=== PATIENT | male | born 1995 | race Caucasian/White ===

== ENCOUNTER 2017-12-14 20:57 | Emergency (ER) | payer OTHER ==
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
--- NOTE | 2017-12-14 22:03 | XR ---
EXAMINATION TYPE: XR shoulder limited LT DATE OF EXAM: 12/14/2017 COMPARISON: 07/19/2016 HISTORY: Shoulder pain TECHNIQUE: 3 views FINDINGS: I see no fracture nor dislocation. Joint spaces are normal. There are no pathologic calcifi cations. Left ribs appear intact. IMPRESSION: Normal left shoulder. No change.
[2017-12-14] MEDS ORDERED: DIPH,PERTUS(ACELL)TETVAC-LF 0.5 ML VIAL IM ONE (22:09)
[2017-12-14] MEDS ORDERED: AMOXIC-POT CLAV 875MG STARTER 2 EACH TABLET PO STA (22:09)
[2017-12-14 22:32] VITALS: BP 129/74; PULSE 94; RESP 18; TEMP 97.9
== END 2017-12-14 22:40 | disposition home or self-care (01) ==
LOC: EC 20:57
DX: S61.412A Laceration without foreign body of left hand, initial encounter (principal); S00.01XA Abrasion of scalp, initial encounter; M25.512 Pain in left shoulder; R07.81 Pleurodynia; Z23 Encounter for immunization; Y00.XXXA Assault by blunt object, initial encounter
CPT/HCPCS: 90471; 90715; 99284

== ENCOUNTER 2018-01-11 22:59 | Emergency (ER) | payer OTHER ==
[2018-01-11 23:06] VITALS: BP 152/99; PULSE 77; RESP 18; TEMP 97.2
[2018-01-11] MEDS ORDERED: KETOROLAC 30 MG/ML 1 ML VIAL IM STA (23:35)
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
== END 2018-01-12 00:10 | disposition home or self-care (01) ==
LOC: EC 22:59
DX: H66.92 Otitis media, unspecified, left ear (principal); F90.9 Attention-deficit hyperactivity disorder, unspecified type; F17.200 Nicotine dependence, unspecified, uncomplicated; Z98.890 Other specified postprocedural states; Z79.899 Other long term (current) drug therapy; Z88.8 Allergy status to other drugs, medicaments and biological substances
CPT/HCPCS: 99282; 96372; J1885

== ENCOUNTER 2018-01-12 17:25 | Emergency (ER) | payer OTHER ==
[2018-01-12 17:30] VITALS: BP 123/62; PULSE 114; RESP 18; TEMP 97
--- NOTE | 2018-01-12 18:31 | ED ---
ENT HPI - General Chief complaint: ENT Stated complaint: Ear pain Time Seen by Provider: 01/12/18 18:17 Source: patient Mode of arrival: ambulatory Limitations: no limitations - History of Present Illness Initial comments: 22-year-old male patient presents to the emergency department today with complaints of bleeding from the left ear. Patient states he was seen and treated here last evening for an ear infection. States that he slept throughout the day today. States when he woke up he noticed some dried blood from the left ear. Patient states his pain has improved. He denies any fevers or chills with this. He denies any headache or dizziness. Denies any neck pain or stiffness. Patient has not yet started his antibiotics for the infection. Patient denies any recent rash, shortness breath, chest pain, abdominal pain, nausea, vomiting, diarrhea, constipation, back pain, numbness, tingling, dizziness, weakness, hematuria, dysuria, urinary urgency, urinary frequency, headache, visual changes, or any other complaints. - Related Data Home Medications Medication Instructions Recorded Confirmed buPROPion XL [Wellbutrin Xl] 300 mg PO DAILY 01/11/18 01/11/18 Previous Rx's Medication Instructions Recorded Acetaminophen-Codeine 300-30mg 1 tab PO Q8H PRN #10 tablet 01/11/18 [Tylenol #3] Amoxic-Pot Clav 500-125 mg 1 tab PO TID #30 tab 01/11/18 [Augmentin 500-125 mg] Amoxic-Pot Clav 875-125Mg 1 tab PO Q12HR #20 tablet 01/12/18 [Augmentin 875-125] Ofloxacin 0.3% Otic Soln [Floxin 5 drops LEFT EAR BID #15 ml 01/12/18 0.3% Otic Soln] Allergies Allergy/AdvReac Type Severity Reaction Status Date / Time diphenhydramine HCl AdvReac Aggression Verified 01/12/18 17:30 [From Benadryl] mirtazapine [From Remeron] AdvReac Aggression Verified 01/12/18 17:30 Review of Systems ROS Statement: Those systems with pertinent positive or pertinent negative responses have been documented in the HPI. ROS Other: All systems not noted in ROS Statement are negative. Past Medical History Past Medical History: Seizure Disorder History of Any Multi-Drug Resistant Organisms: None Reported Past Surgical History: Ear Surgery, Tonsillectomy Past Psychological History: ADD/ADHD, Bipolar Smoking Status: Current every day smoker Past Alcohol Use History: None Reported Past Drug Use History: None Reported General Exam Limitations: no limitations General appearance: alert, in no apparent distress, other (This is a well- developed, well-nourished adult male patient in no acute distress. Vital signs upon presentation are temperature 97.0F, pulse 114, respirations 18, blood pressure 123/62, pulse ox 97% on room air.) Eye exam: Present: normal appearance, PERRL, EOMI. Absent: scleral icterus, conjunctival injection, periorbital swelling ENT exam: Present: normal oropharynx, mucous membranes moist, other (No mastoid tenderness.). Absent: normal exam, TM's normal bilaterally (Right tympanic membrane is normal. Left tympanic membrane reveals a central perforation. There is some dried blood in the canal. There is no canal erythema or swelling. ) Neck exam: Present: normal inspection, full ROM. Absent: tenderness, meningismus, lymphadenopathy Respiratory exam: Present: normal lung sounds bilaterally. Absent: respiratory distress, wheezes, rales, rhonchi, stridor Cardiovascular Exam: Present: regular rate, normal rhythm, normal heart sounds. Absent: systolic murmur, diastolic murmur, rubs, gallop, clicks Neurological exam: Present: alert, oriented X3, CN II-XII intact Psychiatric exam: Present: normal affect, normal mood Skin exam: Present: warm, dry, intact, normal color. Absent: rash Course Vital Signs 01/12/18 17:28 Temperature 97 F L Pulse Rate 114 H Respiratory 18 Rate Blood Pressure 123/62 O2 Sat by Pulse 97 Oximetry Medical Decision Making - Medical Decision Making 22-year-old male patient presented to the emergency department today for evaluation of bleeding from the left ear. Physical examination did reveal a perforated tympanic membrane on the left side. Patient stated no mastoid tenderness. No canal erythema or swelling. We will start patient on ofloxacin eardrops and increase the dosage of his Augmentin to 875/125. Patient is educated and instructed to follow-up with your nose and throat specialty as soon as possible. He is instructed to take ibuprofen and Tylenol for pain control. He is instructed to return here immediately for any new, worsening, or concerning symptoms. They verbalize understanding and agree with this plan. Disposition Clinical Impression: Acute otitis media of left ear with perforated tympanic membrane Disposition: HOME SELF-CARE Condition: Good Instructions: Ruptured Eardrum (ED), Otitis Media (ED) Additional Instructions: Use drops as directed. Take antibiotics until complete. Follow-up with ears nose and throat specialist as soon as possible. Return here immediately for any new, worsening, or concerning symptoms. Prescriptions: Amoxic-Pot Clav 875-125Mg [Augmentin 875-125] 1 tab PO Q12HR #20 tablet Ofloxacin 0.3% Otic Soln [Floxin 0.3% Otic Soln] 5 drops LEFT EAR BID #15 ml Referrals: Deven Donaldson MD [Primary Care Provider] - 1-2 days Kristian Lara DO [Doctor of Osteopathic Medicine] - 1-2 days Time of Disposition: 18:31
== END 2018-01-12 18:42 | disposition home or self-care (01) ==
LOC: EC 17:25
DX: H66.92 Otitis media, unspecified, left ear (principal); H72.92 Unspecified perforation of tympanic membrane, left ear; F90.9 Attention-deficit hyperactivity disorder, unspecified type; F17.200 Nicotine dependence, unspecified, uncomplicated; Z79.899 Other long term (current) drug therapy; Z88.8 Allergy status to other drugs, medicaments and biological substances; Z98.890 Other specified postprocedural states
CPT/HCPCS: 99282

== ENCOUNTER 2018-01-28 20:29 | Emergency (ER) | payer OTHER ==
[2018-01-28 20:47] VITALS: BP 135/71; PULSE 120; RESP 20; TEMP 99.2
[2018-01-28] MEDS ORDERED: HYDROcodone/APAP 5-325MG 1 EACH TAB PO STA (21:09)
[2018-01-28] MEDS ORDERED: PROPARACAINE 0.5% OPHTH DROPS 15 ML BTL LEFT EYE STA (21:44)
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
--- NOTE | 2018-01-28 21:50 | CT ---
EXAMINATION TYPE: CT facial bones wo con DATE OF EXAM: 01/28/2018 COMPARISON: NONE HISTORY: Left eye injury. CT DLP: 777.1 mGycm Automated exposure control for dose reduction was used. TECHNIQUE: Multiple axial sections were obtained from the bottom of the mandible to the vertex of the brain with no contrast. FINDINGS: There is extensive mucosal thickening in the maxillary sinuses and more on the left side. There is si milar mucosal thickening in the ethmoid and frontal sinuses to a lesser extent. There is minimal muco rosalba thickening in the left side sphenoid sinus. I see no evidence of a blowout fracture. Orbital rainer ins are intact. Maxilla is intact. The mandibular ring is intact. Nasal bone appears intact. Zygomati c arches appear normal. There is preseptal significant soft tissue swelling around the left orbit. Th is is seen inferior to the orbit. This probably small subcutaneous hematoma in the left infraorbital region. The globes are symmetric. CONCLUSION: No fracture. Pansinusitis. Left infraorbital soft tissue swelling. No evidence of orbital mass.
== END 2018-01-28 22:30 | disposition home or self-care (01) ==
LOC: EC 20:29
DX: S05.42XA Penetrating wound of orbit with or without foreign body, left eye, initial encounter (principal); F90.9 Attention-deficit hyperactivity disorder, unspecified type; F31.9 Bipolar disorder, unspecified; F17.200 Nicotine dependence, unspecified, uncomplicated; Z79.899 Other long term (current) drug therapy; Z88.8 Allergy status to other drugs, medicaments and biological substances; W22.8XXA Striking against or struck by other objects, initial encounter; Y99.0 Civilian activity done for income or pay
CPT/HCPCS: 12011; 70486; 99284

== ENCOUNTER 2018-12-23 19:37 | Emergency (ER) | payer OTHER ==
[2018-12-23] MEDS ORDERED: IBUPROFEN 600 MG TAB PO STA (20:06)
--- NOTE | 2018-12-23 20:09 | ED ---
Chest Pain HPI - General Chief Complaint: Chest Pain Stated Complaint: Chest pain Time Seen by Provider: 12/23/18 19:59 Source: patient Mode of arrival: ambulatory Limitations: no limitations - History of Present Illness Initial Comments: 23-year-old male presenting with left-sided sharp stabbing intermittent chest pain that began without inciting event, is worsened with coughing, not alleviated by anything. Patient denies any anginal equivalents with the pain started. He denies any personal or family history of early cardiac disease, DVT /PE, recent surgery, active cancer. He denies any history of hypertension or high cholesterol but is a smoker. He admits to upper respiratory infection for the last 1 week and states he has been coughing frequently. - Related Data Home Medications Medication Instructions Recorded Confirmed buPROPion XL [Wellbutrin Xl] 300 mg PO DAILY 01/11/18 01/11/18 Previous Rx's Medication Instructions Recorded Acetaminophen-Codeine 300-30mg 1 tab PO Q8H PRN #10 tablet 01/11/18 [Tylenol #3] Amoxic-Pot Clav 500-125 mg 1 tab PO TID #30 tab 01/11/18 [Augmentin 500-125 mg] Amoxic-Pot Clav 875-125Mg 1 tab PO Q12HR #20 tablet 01/12/18 [Augmentin 875-125] Ofloxacin 0.3% Otic Soln [Floxin 5 drops LEFT EAR BID #15 ml 01/12/18 0.3% Otic Soln] Benzonatate [Tessalon Perles] 100 mg PO TID PRN #20 capsule 12/23/18 Ibuprofen [Motrin] 600 mg PO Q6HR PRN #30 tab 12/23/18 predniSONE [Deltasone] 40 mg PO DAILY #10 tablet 12/23/18 Allergies Allergy/AdvReac Type Severity Reaction Status Date / Time diphenhydramine HCl AdvReac Aggression Verified 01/28/18 20:47 [From Benadryl] mirtazapine [From Remeron] AdvReac Aggression Verified 01/28/18 20:47 Review of Systems ROS Statement: Those systems with pertinent positive or pertinent negative responses have been documented in the HPI. Review of Systems Constitutional: Denies fever, chills Eyes: Denies change in vision, Denies pain Ears, nose, mouth, throat: Denies headaches, Denies sore throat Cardiovascular: Positive chest pain. Denies palpitations Respiratory: Denies shortness of breath, Positive cough Gastrointestinal: Denies abdominal pain. Denies nausea, vomiting, diarrhea. Genitourinary: Denies hematuria, Denies infections Musculoskeletal: Denies pain, Denies swelling Integumentary: Denies rash Neurological: Denies headache, focal weakness, focal numbness Psychiatric: Denies anxiety, Denies depression Hematologic/Lymphatic: Denies easy bleeding or bruising ROS Other: All systems not noted in ROS Statement are negative. Past Medical History Past Medical History: Seizure Disorder History of Any Multi-Drug Resistant Organisms: None Reported Past Surgical History: Ear Surgery, Tonsillectomy Past Psychological History: ADD/ADHD, Bipolar Smoking Status: Current every day smoker Past Alcohol Use History: None Reported Past Drug Use History: None Reported General Exam - General Exam Comments Initial Comments: General: Awake, alert, No acute Distress HENT: Normocephalic. Atraumatic Eyes: PERRL. EOMI. No scleral icterus. No injected conjunctiva Neck: Full ROM Chest/Lungs: Clear to auscultation bilaterally. No wheezing, rhonchi, or rales Cardiac: Regular rate, rhythm. No murmurs or rubs Abdomen/GI: Soft, nontender, nondistended. No rebound, guarding, or rigidity. Musculoskeletal: Full ROM Skin: Warm, dry, intact Neurologic: A/Ox3, no weakness, no sensory deficit, no abnormal gait, no coordination deficit Limitations: no limitations Course Vital Signs 12/23/18 19:40 Temperature 97.6 F Pulse Rate 69 Respiratory 16 Rate Blood Pressure 142/83 O2 Sat by Pulse 100 Oximetry Chest Pain [facility] 21-year-old male presenting to chest pain. Initial exam the patient is awake, alert, no acute distress. VSS. EKG shows normal sinus rhythm at a rate of [address] segment elevation, depression. No prolonged QT/QTc or AL interval. No dysrythmia noted. Patient's chest x-ray was negative. There is no indication for cardiac workup as the patient is young, healthy, and is a family history of early cardiac disease. He is PERC negative. Patient's pain at this time is likely secondary to his coughing and acute bronchitis. Patient was given prednisone, Motrin, Tessalon Perles on the department and prescriptions. This time no further emergent workup indicated. Patient is stable for outpatient follow up at this time. He understands return to ER instructions. - Wells Criteria Clinical Symptoms of DVT: (0) No No Alternative Diagnosis: (0) No Immobilization of Surgery in Previous 4 Weeks: (0) No Previous DVT/PE: (0) No Hemoptysis: (0) No Malignancy: (0) No - PERC Rule Heart Rate < 100: (0) No g: (0) No No Prior History pf DVT/PE: (0) No No Recent Trauma or Surgery: (0) No Hemoptysis: (0) No No Exogenous Estrogen: (0) No No Clinical Signs Suggesting DVT: (0) No Disposition Clinical Impression: Bronchitis, Chest pain Disposition: HOME SELF-CARE Condition: Good Instructions (If sedation given, give patient instructions): Chest Pain (ED), Costochondritis (ED), Acute Bronchitis (ED) Prescriptions: Benzonatate [Tessalon Perles] 100 mg PO TID PRN #20 capsule PRN Reason: Cough Ibuprofen [Motrin] 600 mg PO Q6HR PRN #30 tab PRN Reason: Pain predniSONE [Deltasone] 40 mg PO DAILY #10 tablet Is patient prescribed a controlled substance at d/c from ED?: No Referrals: Deven Donaldson MD [Primary Care Provider] - 1-2 days
--- NOTE | 2018-12-23 20:22 | XR ---
EXAMINATION TYPE: XR chest 2V DATE OF EXAM: 12/23/2018 COMPARISON: 08/16/2016 chest radiograph HISTORY: Chest pain TECHNIQUE: Frontal and lateral views of the chest are obtained. FINDINGS: There is no focal air space opacity, pleural effusion, or pneumothorax seen. The cardiac silhouette size is within normal limits. The osseous structures are intact. IMPRESSION: No acute cardiopulmonary process. No significant interval change.
[2018-12-23] MEDS ORDERED: predniSONE 20 MG TAB PO STA (20:23)
[2018-12-23] MEDS ORDERED: BENZONATATE 100 MG CAP PO STA (20:23)
[2018-12-23 21:01] VITALS: BP 133/95; PULSE 75; RESP 18; TEMP 98.8
== END 2018-12-23 20:58 | disposition home or self-care (01) ==
LOC: EC 19:37
DX: J20.9 Acute bronchitis, unspecified (principal); F31.9 Bipolar disorder, unspecified; F17.200 Nicotine dependence, unspecified, uncomplicated; Z88.8 Allergy status to other drugs, medicaments and biological substances; Z79.899 Other long term (current) drug therapy; Z90.89 Acquired absence of other organs
CPT/HCPCS: 99284; 71046; J7512

== ENCOUNTER 2019-01-05 18:47 | Emergency (ER) | payer OTHER ==
[2019-01-05 19:09] VITALS: RESP 18; TEMP 98.2
[2019-01-05] MEDS ORDERED: KETOROLAC 60 MG/2 ML VIAL IM STA (19:47)
--- NOTE | 2019-01-05 19:58 | ED ---
General Adult HPI - General Chief complaint: Chest Pain Stated complaint: Chest Pain Time Seen by Provider: 01/05/19 19:05 Source: patient, RN notes reviewed Mode of arrival: ambulatory Limitations: no limitations - History of Present Illness Initial comments: This is a 23-year-old male who presents emergency Department complaining of sharp intermittent chest pain to the left side of his chest per patient states she's been having this for 2 weeks and has been seen here and at his doctor's office. Patient states she was prescribed Motrin and prednisone but it did not seem to help. Patient denies any shortness of breath or difficulty breathing. Patient denies any consistent pain. Patient denies any pressure or heaviness. Patient denies any palpitations. Patient denies any fever or chills. Patient states he's got a chronic cough because he is a smoker. Patient denies any abdominal pain. Patient denies any swelling to the legs or calf tenderness. - Related Data Previous Rx's Medication Instructions Recorded Benzonatate [Tessalon Perles] 100 mg PO TID PRN #20 capsule 12/23/18 Ibuprofen [Motrin] 600 mg PO Q6HR PRN #30 tab 12/23/18 predniSONE [Deltasone] 40 mg PO DAILY #10 tablet 12/23/18 Ketorolac [Toradol] 10 mg PO Q6HR #15 tab 01/05/19 Allergies Allergy/AdvReac Type Severity Reaction Status Date / Time diphenhydramine HCl AdvReac Aggression Verified 01/05/19 19:09 [From Benadryl] mirtazapine [From Remeron] AdvReac Aggression Verified 01/05/19 19:09 Review of Systems ROS Statement: Those systems with pertinent positive or pertinent negative responses have been documented in the HPI. ROS Other: All systems not noted in ROS Statement are negative. Past Medical History Past Medical History: Seizure Disorder History of Any Multi-Drug Resistant Organisms: None Reported Past Surgical History: Ear Surgery, Tonsillectomy Past Psychological History: ADD/ADHD, Bipolar Smoking Status: Current every day smoker Past Alcohol Use History: None Reported Past Drug Use History: None Reported General Exam - General Exam Comments Initial Comments: GENERAL: Patient is well-developed and well-nourished. Patient is nontoxic and well- hydrated and is in mild distress. ENT: Neck is soft and supple. No significant lymphadenopathy is noted. Oropharynx is clear. Moist mucous membranes. Neck has full range of motion without eliciting any pain. EYES: The sclera were anicteric and conjunctiva were pink and moist. Extraocular movements were intact and pupils were equal round and reactive to light. Eyeli ds were unremarkable. PULMONARY: Unlabored respirations. Good breath sounds bilaterally. No audible rales rhonchi or wheezing was noted. CARDIOVASCULAR: There is a regular rate and rhythm without any murmurs gallops or rubs. ABDOMEN: Soft and nontender with normal bowel sounds. No palpable organomegaly was noted. There is no palpable pulsatile mass. SKIN: Skin is clear with no lesions or rashes and otherwise unremarkable. NEUROLOGIC: Patient is alert and oriented x3. Cranial nerves II through XII are grossly intact. Motor and sensory are also intact. Normal speech, volume and content. Symmetrical smile. MUSCULOSKELETAL: Normal extremities with adequate strength and full range of motion. No lower extremity swelling or edema. No calf tenderness. LYMPHATICS: No significant lymphadenopathy is noted PSYCHIATRIC: Normal psychiatric evaluation. Limitations: no limitations Course Vital Signs 01/05/19 19:06 Temperature 98.2 F Pulse Rate 71 Respiratory 18 Rate Blood Pressure 139/83 O2 Sat by Pulse 99 Oximetry Medical Decision Making - Medical Decision Making EKG shows normal sinus rhythm at [address] interval 240 QRS 92 QT interval 360 QTC is 371 per patient's EKG shows no ST segment elevation or depression or T wave abnormalities are noted. Patient got a shot of Toradol and felt a little bit better. Patient will follow-up with his primary medical care doctor. Disposition Clinical Impression: Chest pain Disposition: HOME SELF-CARE Condition: Good Instructions (If sedation given, give patient instructions): Chest Pain (ED) Prescriptions: Ketorolac [Toradol] 10 mg PO Q6HR #15 tab Is patient prescribed a controlled substance at d/c from ED?: No Referrals: Deven Donaldson MD [Primary Care Provider] - 1-2 days Time of Disposition: 20:34
[2019-01-05 20:55] VITALS: BP 121/56; PULSE 80
== END 2019-01-05 20:55 | disposition home or self-care (01) ==
LOC: EC 18:47
DX: R07.9 Chest pain, unspecified (principal); R05 Cough; F17.200 Nicotine dependence, unspecified, uncomplicated; Z88.8 Allergy status to other drugs, medicaments and biological substances; Z90.89 Acquired absence of other organs
CPT/HCPCS: 99284; 96372; J1885

== ENCOUNTER 2020-05-08 12:09 | Emergency (ER) | payer OTHER ==
[2020-05-08] MEDS ORDERED: KETOROLAC 60 MG/2 ML VIAL IM STA (12:25)
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
[2020-05-09 10:09] VITALS: BP 121/73; PULSE 55; RESP 18; TEMP 98
== END 2020-05-08 12:49 | disposition home or self-care (01) ==
LOC: EC 12:09
DX: S39.012A Strain of muscle, fascia and tendon of lower back, initial encounter (principal); F17.200 Nicotine dependence, unspecified, uncomplicated; Z88.8 Allergy status to other drugs, medicaments and biological substances; X58.XXXA Exposure to other specified factors, initial encounter
CPT/HCPCS: 96372; 99283

== ENCOUNTER 2020-07-23 12:49 | Emergency (ER) | payer OTHER ==
[2020-07-23 13:22] VITALS: RESP 18; TEMP 97.3
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
--- NOTE | 2020-07-23 14:06 | XR ---
EXAMINATION TYPE: XR ribs RT w pa chest xray DATE OF EXAM: 07/23/2020 COMPARISON: NONE HISTORY: Pain TECHNIQUE: Single view of the chest 4 views of the ribs are submitted. FINDINGS: The lungs are clear. No Evidence for pneumothorax. No evidence for focal contusion. Medi astinal structures are midline. Evaluation of the ribs fails to demonstrate evidence for displaced r ib fracture or secondary sign of rib fracture. IMPRESSION: Negative study
[2020-07-23] MEDS ORDERED: ACET/COD 300 MG/30 MG STARTER PACK 6 TAB BTL PO STA (14:22)
[2020-07-23 14:34] VITALS: BP 132/86; PULSE 77
== END 2020-07-23 14:32 | disposition home or self-care (01) ==
LOC: EC 12:49
DX: S20.211A Contusion of right front wall of thorax, initial encounter (principal); F17.200 Nicotine dependence, unspecified, uncomplicated; Z88.8 Allergy status to other drugs, medicaments and biological substances
CPT/HCPCS: 99283

== ENCOUNTER 2020-08-08 04:26 | Emergency (ER) | payer BC, OTHER ==
[2020-08-08 04:35] VITALS: BP 129/87; PULSE 78; RESP 18; TEMP 97.7
--- NOTE | 2020-08-08 04:57 | ED ---
General Adult HPI - General Chief complaint: Skin/Abscess/Foreign Body Stated complaint: GI bleed Time Seen by Provider: 08/08/20 04:41 Source: patient Mode of arrival: ambulatory Limitations: no limitations - History of Present Illness Initial comments: Alessandro is a pleasant previously healthy 24-year-old gentleman who presents the ER today for evaluation of dark blood per rectum for approximately 24 hours duration. Patient reports that he has a history of hemorrhoids in the past, yesterday morning he had a bowel movement and noticed some blood when wiping but states that during the day today he noticed there is some blood on his underpants and persistent blood this evening which prompted him to come to ER for evaluation. Patient denies any chest pain, palpitations or lightheadedness. He has no history of significant GI bleeding in the past. He is on no antiplatelet or anticoagulant medications. He's having no abdominal or rectal pain. - Related Data Previous Rx's Medication Instructions Recorded Cyclobenzaprine [Flexeril] 5 mg PO BID PRN #10 tablet 05/08/20 Ketorolac [Toradol] 10 mg PO Q8HR #10 tab 05/08/20 Allergies Allergy/AdvReac Type Severity Reaction Status Date / Time diphenhydramine HCl AdvReac Aggression Verified 08/08/20 04:35 [From Benadryl] mirtazapine [From Remeron] AdvReac Aggression Verified 08/08/20 04:35 Review of Systems ROS Statement: Those systems with pertinent positive or pertinent negative responses have been documented in the HPI. ROS Other: All systems not noted in ROS Statement are negative. Past Medical History Past Medical History: Seizure Disorder History of Any Multi-Drug Resistant Organisms: None Reported Past Surgical History: Ear Surgery, Tonsillectomy Past Psychological History: ADD/ADHD, Bipolar Smoking Status: Current every day smoker Past Alcohol Use History: None Reported Past Drug Use History: None Reported General Exam - General Exam Comments Initial Comments: Physical Exam GENERAL: Patient is well-developed and well-nourished. Patient is nontoxic and well-hydrated and is in no distress. HENT: Normocephalic, Atraumatic. EYES: PERRL, EOMI PULMONARY: Unlabored respirations. CARDIOVASCULAR: RRR Warm and well perfused extremities ABDOMEN: Non-distended SKIN: No rashes or bruising : Deferred Patient declined a rectal exam but was able to provide photographs that he had taken at home of his anus which revealed multiple large external hemorrhoids with dark blood NEUROLOGIC: Alert and oriented Normal speech Normal gait MUSCULOSKELETAL: Moving all extremities with no apparent injury PSYCHIATRIC: No SI/HI Limitations: no limitations Course Vital Signs 08/08/20 04:31 Temperature 97.7 F Pulse Rate 78 Respiratory 18 Rate Blood Pressure 129/87 O2 Sat by Pulse 99 Oximetry Medical Decision Making - Medical Decision Making The patient was seen and evaluated, history is obtained from the patient This is a hemodynamically stable 24-year-old male who has bleeding external hemorrhoids, at this time I do not feel that blood work is indicated, patient has no signs of anemia on physical exam he is in no distress Bleeding is a minimal trickle and streaking of blood in the underwear. Supportive care for hemorrhoids was discussed with the patient. Patient will be given a referral to surgeon for outpatient follow-up. Disposition Clinical Impression: Bleeding external hemorrhoids Disposition: HOME SELF-CARE Condition: Stable Additional Instructions: As we discussed you have a bleeding external hemorrhoid, you need to more water, increase her fruit and that she intake and take Miralax daily to soften stools and decrease development of future hemorrhoids, use preparationH or other over the counter hemorrhoid cream for any itchiness or discomfort Return to the ER if you develop any significant pain in the area as he can get thrombosis or blood clot within the hemorrhoids In follow-up with a general surgeon for further discussion of hemorrhoid removal surgery Is patient prescribed a controlled substance at d/c from ED?: No Referrals: Deven Donaldson MD [Primary Care Provider] - 1-2 days David Gomez MD [STAFF PHYSICIAN] - 1-2 days Clarice Fox MD [STAFF PHYSICIAN] - 1-2 days Milad Hannon MD [REFERRING] - 1-2 days
== END 2020-08-08 05:17 | disposition home or self-care (01) ==
LOC: EC 04:26
DX: K64.4 Residual hemorrhoidal skin tags (principal); Z88.8 Allergy status to other drugs, medicaments and biological substances; F17.200 Nicotine dependence, unspecified, uncomplicated
CPT/HCPCS: 99284

== ENCOUNTER 2020-08-30 21:54 | Emergency (ER) | payer OTHER ==
[2020-08-30 22:00] VITALS: TEMP 97.9
[2020-08-30] MEDS ORDERED: SODIUM CHLORIDE 0.9% 1,000 ML IV STA (22:23)
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
--- NOTE | 2020-08-30 22:46 | XR ---
EXAMINATION TYPE: XR chest 2V DATE OF EXAM: 08/30/2020 COMPARISON: 12/23/2018 HISTORY: Chest pain Heart and mediastinum are normal. Lungs are clear. Diaphragm is normal. Bony thorax appears normal. ] IMPRESSION: Normal chest. No change.
[2020-08-30 22:55] LABS: Basophils # (A) 0.1 k/uL (0-0.2); Basophils % (A) 1 %; Eosinophils # (A) 0.1 k/uL (0-0.7); Eosinophils % (A) 1 %; HCT 50.2 % (39.0-53.0); HGB 16.5 gm/dL (13.0-17.5); Lymphocytes # (A) 2.9 k/uL (1.0-4.8); Lymphocytes % (A) 35 %; MCH 28.2 pg (25.0-35.0); MCHC 32.9 g/dL (31.0-37.0); MCV 85.8 fL (80.0-100.0); Monocytes # (A) 0.5 k/uL (0-1.0); Monocytes % (A) 6 %; Neutrophils # (A) 4.5 k/uL (1.3-7.7); Neutrophils % (A) 54 %; Platelet Count 259 k/uL (150-450); RBC 5.85 m/uL (4.30-5.90); RDW 13.1 % (11.5-15.5); WBC 8.3 k/uL (3.8-10.6)
[2020-08-30 22:58] LABS: ALT 17 U/L (4-49); AST 28 U/L (17-59); African American GFR (CKD) >90 (>60 ml/min/1.73 sqM); Albumin 4.7 g/dL (3.5-5.0); Alkaline Phosphatase 68 U/L (38-126); Anion Gap 7 mmol/L; Blood Urea Nitrogen 10 mg/dL (9-20); Calcium 10.1 mg/dL (8.4-10.2); Carbon Dioxide 30 mmol/L (22-30); Chloride 102 mmol/L (98-107); Glucose 100 mg/dL (74-99); Non-African American GFR(CKD) >90 (>60 ml/min/1.73 sqM); Potassium 4.8 mmol/L (3.5-5.1); Sodium 139 mmol/L (137-145); Total Bilirubin 0.5 mg/dL (0.2-1.3); Total Protein 8.1 g/dL (6.3-8.2)
[2020-08-30 23:45] LABS: Cocaine Screen,Urine Not Detected (NotDetected); Phencyclidine Screen,Urine Not Detected (NotDetected); Urn Cannabinoid Scrn Not Detected (NotDetected)
[2020-08-30 23:46] LABS: Amphetamine Screen,Urine Detected (NotDetected); Barbiturate Screen,Urine Not Detected (NotDetected); Benzodiazepines Screen,Urine Not Detected (NotDetected); Methadone Screen, Urine Not Detected (NotDetected); Opiate Screen,Urine Not Detected (NotDetected); Oxycodone Screen, Urine Not Detected (NotDetected); Tricyclic Antidepressant,Urine Not Detected (NotDetected)
[2020-08-31 00:10] VITALS: BP 135/94; PULSE 90; RESP 16
== END 2020-08-31 00:10 | disposition home or self-care (01) ==
LOC: EC 21:54
DX: R00.2 Palpitations (principal); F17.200 Nicotine dependence, unspecified, uncomplicated; Z88.8 Allergy status to other drugs, medicaments and biological substances
CPT/HCPCS: 36415; 71046; 80053; 80306; 84443; 84484; 85025; 93005; 96360; 99285

== ENCOUNTER 2021-03-01 16:25 | Emergency (ER) | payer OTHER ==
[2021-03-01 16:38] VITALS: BP 136/63; PULSE 112; RESP 18; TEMP 98.2
[2021-03-01] MEDS ORDERED: LIDOCAINE 1% INJ 10MG/ML (20 ML MDV) SQ ONE (16:56)
[2021-03-01] MEDS ORDERED: DIPH,PERTUS(ACELL)TETVAC-LF 0.5 ML VIAL IM ONE (16:56)
--- NOTE | 2021-03-01 17:00 | ED ---
Wound/Laceration HPI - General Chief Complaint: Wound/Laceration Stated Complaint: finger lac Time Seen by Provider: 03/01/21 16:41 Source: patient, RN notes reviewed Mode of arrival: ambulatory - History of Present Illness Initial Comments: Patient is a 25-year-old male that presents emergency problem with a right lateral index finger laceration. He notes that he is [employer] trying to poke hole in his new belt when the knife started close on him and it cut his finger. He noted that he ran under the sink to clean it wrapped it came in. He noted that he was in no pain or discomfort. He denied any decreased range of motion sensation strength weakness numbness tingling chest pain shortness breath headache nausea vomiting diarrhea constipation fever fatigue chills. - Related Data Previous Rx's Medication Instructions Recorded Cyclobenzaprine [Flexeril] 5 mg PO BID PRN #10 tablet 05/08/20 Ketorolac [Toradol] 10 mg PO Q8HR #10 tab 05/08/20 Allergies Allergy/AdvReac Type Severity Reaction Status Date / Time diphenhydramine HCl AdvReac Aggression Verified 03/01/21 16:38 [From Benadryl] mirtazapine [From Remeron] AdvReac Aggression Verified 03/01/21 16:38 Review of Systems ROS Statement: Those systems with pertinent positive or pertinent negative responses have been documented in the HPI. ROS Other: All systems not noted in ROS Statement are negative. Past Medical History Past Medical History: No Reported History, Seizure Disorder History of Any Multi-Drug Resistant Organisms: None Reported Past Surgical History: Ear Surgery, Tonsillectomy Past Psychological History: ADD/ADHD, Anxiety, Bipolar Smoking Status: Current every day smoker Past Alcohol Use History: None Reported Past Drug Use History: None Reported General Exam General appearance: alert, in no apparent distress Head exam: Present: atraumatic, normocephalic, normal inspection Eye exam: Present: normal appearance, PERRL, EOMI. Absent: scleral icterus, conjunctival injection, periorbital swelling Respiratory exam: Present: normal lung sounds bilaterally. Absent: respiratory distress, wheezes, rales, rhonchi, stridor Cardiovascular Exam: Present: regular rate, normal rhythm, normal heart sounds. Absent: systolic murmur, diastolic murmur, rubs, gallop, clicks Extremities exam: Present: normal inspection, full ROM, normal capillary refill. Absent: tenderness, pedal edema, joint swelling, calf tenderness Neurological exam: Present: alert, oriented X3, CN II-XII intact Psychiatric exam: Present: normal affect, normal mood Skin exam: Present: warm, dry, intact, normal color, other (Approximately 3 cm U-shaped laceration to the lateral aspect of the base of the right index finger.). Absent: rash Course Vital Signs 03/01/21 16:34 Temperature 98.2 F Pulse Rate 112 H Respiratory 18 Rate Blood Pressure 136/63 O2 Sat by Pulse 98 Oximetry Procedures - Laceration Laceration #1 Consent Obtained: verbal consent Site: hand (Lateral right index finger) Size (cm): 5 Description: linear (U-shaped), clean Depth: simple, single layer Anesthetic Used: lidocaine 1% Anesthesia Technique: nerve block Amount (mls): 3 Pre-repair: irrigated extensively Type of Sutures: nylon Size of Sutures: 5-0 Number of Sutures: 5 Complications: bleeding Patient Tolerated Procedure: well, no complications Medical Decision Making - Medical Decision Making 25-year-old male with right index finger laceration. Right index finger x-ray, tetanus vaccine, lidocaine ordered. Patient declined the need for any pain medication this time. Patient he'll suturing well. Case discussed with Dr. Chen, patient discharge home. Disposition Clinical Impression: Laceration, Laceration of right index finger Disposition: HOME SELF-CARE Condition: Stable Instructions (If sedation given, give patient instructions): Laceration (ED), Care For Your Stitches (ED) Additional Instructions: Please return to the Emergency Department if symptoms worsen or any other concerns. Follow-up with primary care in 3-5 days. Please come back in 5-7 days to have sutures well. Keep area clean and dry can wash with warm water gentle soap. Is patient prescribed a controlled substance at d/c from ED?: No Referrals: None,Stated [Primary Care Provider] - 1-2 days Time of Disposition: 17:36
--- NOTE | 2021-03-01 17:35 | XR ---
EXAMINATION TYPE: XR finger RT DATE OF EXAM: 03/01/2021 COMPARISON: NONE HISTORY: Laceration TECHNIQUE: 3 views FINDINGS: 3 views of the right index finger show no fracture nor dislocation. Joint spaces are normal . There is no sign of a foreign body. IMPRESSION: Negative exam.
== END 2021-03-01 17:47 | disposition home or self-care (01) ==
LOC: EC 16:25
DX: S61.210A Laceration without foreign body of right index finger without damage to nail, initial encounter (principal); W26.0XXA Contact with knife, initial encounter; F17.200 Nicotine dependence, unspecified, uncomplicated; Z90.09 Acquired absence of other part of head and neck; Z23 Encounter for immunization
CPT/HCPCS: 73140; 90715; 99282; 12002; 96372; 90471; J2001